=== PATIENT | male | born 1995 | race Hispanic/Latino ===

== ENCOUNTER 2018-12-01 18:18 | Emergency (ER) | payer OTHER, SELFPAY ==
[2018-12-01 18:22] VITALS: BP 147/90; PULSE 92; RESP 16; TEMP 37.3; O2SAT 99
--- NOTE | 2018-12-01 19:06 | ED_ITS ---
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 He is here with his . 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 He states that he has a lot of stress at home. He states that for some time now he has had suicidal ideation No specific plan. States that [place] no [place] were started. He has a follow-up this Thursday. He states that since Thursday he has had more intrusive thoughts of hurting himself. He stated he has had thoughts of shooting himself. Denies any other toxic ingestions. Has not hurt himself. Has never been admitted to the hospital in the past for his symptoms. Related Data Home Medications Medication Instructions Recorded Confirmed No Known Home Medications 12/01/18 12/01/18 Allergies Allergy/AdvReac Type Severity Reaction Status Date / Time No Known Drug Allergies Allergy Verified 12/01/18 18:32 Review of Systems Constitutional Denies headache(s) ENT Ears, Nose, Mouth, and Throat: Denies vertigo, Denies dizziness and Denies headache(s) Cardiovascular Denies chest pain and Denies dyspnea Respiratory Denies dyspnea Gastrointestinal Gastrointestinal: Denies abdominal pain Musculoskeletal Denies myalgias and Denies arthralgias Integumentary/Breasts Denies rash Neurologic Reports behavioral changes, Denies vertigo, Denies dizziness and Denies headache(s) Psychiatric Reports behavioral changes, Reports mood swings and Reports suicidal ideation Hematologic/Lymphatic Denies easy bleeding and Denies easy bruising [facility] Medical History Healthy adult (Acute) Social History Smoking Status: Current every day smoker Social History Smoking Status: Current every day smoker Exam Initial Vital Signs Initial Vital Signs: Vital Signs Temperature 99.2 F 12/01/18 18:22 Pulse Rate 92 H 12/01/18 18:22 Respiratory Rate 16 12/01/18 18:22 Blood Pressure 147/90 H 12/01/18 18:22 Pulse Oximetry 99 12/01/18 18:22 Const General: cooperative, healthy appearing, comfortable, well developed, well groomed and No acute distress Orientation: alert, awake and oriented x3 HENMT Head: normal to inspection and normocephalic Resp Effort & Inspection: normal respiratory effort Cardio Rate: regular rate Skin Lesions: no lesions Rashes: no rashes Neuro General: alert, awake and oriented x3 Cognition: normal cognition Speech: speech normal Gait: normal gait Extrem General: normal to inspection and capillary refill normal Psych Appearance: grossly normal Mental Status: mental status grossly normal Speech and Movement: speech and movement normal Mood: congruent mood Affect: normal affect Attitude: cooperative Thought Process: normal Thought Content: normal Judgment: judgment good Course Vital Signs - 8 hr 12/01/18 18:22 Temperature 99.2 F Pulse Rate 92 H Respiratory Rate 16 Blood Pressure 147/90 H Pulse Oximetry 99 MDM - Psych Lab Data Urine Dip Bedside Urine Glucose Negative Bedside Urine Bilirubin - Negative Bedside Urine Ketone - Negative Urine Specific [place] 1.020 Bedside Urine Occult Blood - Negative Bedside Urine pH 7.0 Bedside Urine Protein - Negative Bedside Urine Urobilinogen - Negative Bedside Urine Nitrite - Negative Bedside Urine Leukocytes - Negative Esterase MDM Narrative Medical decision making narrative: Patient is here with his . Had a long discussion with him and his regarding his symptoms. Patient states that he did feel safe at home. He stated that he would not hurt himself at home. Informed him that if he felt like he needed to be admitted to the hospital I would be happy to work on finding him a place. I did inform him that I was concerned about his symptoms and that I would do what he thought was appropriate. I also told him that if he had follow-up on Thursday with his mental health provider and if he felt safe at home and would tell someone return to the emergency department if he thought of hurting himself that this would also be appropriate. Patient states that he felt like he would be safe to go home. His states that she felt safe taking him home. He did agree to return to the emergency department if symptoms worsen. He stated that he would follow up with his primary doctor. Discharge Plan Departure Patient Disposition: Home Clinical Impression: Adjustment disorder Qualifiers: Adjustment disorder type: unspecified type Qualified Code(s): F43.20 - Adjustment disorder, unspecified Discharge Date/Time: 12/01/18 20:16 Interventions: ED Discharge Assessment Last Done: 12/01/18 20:16 Instructions: Depression, Adjustment Disorder Activity Restrictions/Additional Instructions: I recommend that you keep your appointment that you have 1 Thursday with your mental health provider [place] the [employer] [place]. if you continue to have thoughts of hurting yourselfself or others please tell someone and return to the emergency department. Prescriptions: No Action No Known Home Medications RF: 0
[2018-12-01 20:16] VITALS: BP 126/76; PULSE 68; RESP 18; O2SAT 98
== END 2018-12-01 20:16 | disposition home or self-care (01) ==
PROVIDERS: Emergency Provider Emergency Medicine
DX: F43.20 Adjustment disorder, unspecified (principal)
CPT/HCPCS: 81003; 99282; 99283